=== PATIENT | female | born 1975 | race Caucasian/White ===

== ENCOUNTER 2017-02-01 07:45 | Day surgery (SDC) | payer BC ==
[~2017-02-01 07:45] MED LIST: Lactated Ringers 1,000 ML IV SCH; Lidocaine 2% 5 ML SDV ONE; Midazolam 1 MG/ML 2 ML SDV ONE; Ondansetron 4 MG/2 ML SDV ONE; Propofol 200 MG/20 ML SDV ONE; fentaNYL 250 MCG/5 ML SDV ONE
[2017-02-01] MEDS ORDERED: Methylergonovine 0.2 MG/1 ML Amp ONE (07:49)
[2017-02-01] MEDS ORDERED: fentaNYL 100 MCG/2 ML SDV IVPUSH PRN (08:33)
--- NOTE | 2017-02-01 08:54 | PCM.PREANE ---
Preanesthetic Assessment - Anesthesia/Transfusion/Family Hx Anesthesia History: Prior Anesthesia Without Reaction Other Type of Anesthesia Reaction Comment: "oxygen saturation kept dropping after my gastric bypass" Family History of Anesthesia Reaction: No Transfusion History: No Prior Transfusion(s) - Review of Systems General: No Symptoms Pulmonary: No Symptoms Cardiovascular: No Symptoms Gastrointestinal: No symptoms Neurological: No Symptoms Other: Reports: None - Physical Assessment NPO Status Date: 01/31/17 O2 Sat by Pulse Oximetry: 100 Respiratory Rate: 16 Vital Signs: Last Vital Signs Temp 36.3 C 02/01/17 07:49 Pulse 56 L 02/01/17 07:49 Resp 16 02/01/17 07:49 BP 133/68 02/01/17 07:49 Pulse Ox 100 02/01/17 07:49 Height: 1.68 m Weight: 123.377 kg ASA Class: 2 Mental Status: Alert & Oriented x3 Airway Class: Mallampati = 2 Dentition: Reports: Normal Dentition Lungs: Clear to auscultation, Normal respiratory effort Cardiovascular: Regular Rate, Regular Rhythm - Lab Values: Laboratory Last Values WBC 8.67 K/uL (4.0-11.0) 02/01/17 08:11 RBC 4.69 M/uL (4.30-5.90) 02/01/17 08:11 Hgb 13.3 g/dL (12.0-16.0) 02/01/17 08:11 Hct 41.1 % (36.0-46.0) 02/01/17 08:11 MCV 87.6 fL (80.0-98.0) 02/01/17 08:11 MCH 28.4 pg (27.0-32.0) 02/01/17 08:11 MCHC 32.4 g/dL (31.0-37.0) 02/01/17 08:11 RDW Std Deviation 46.5 fl (28.0-62.0) 02/01/17 08:11 RDW Coeff of Feliciano 15 % (11.0-15.0) 02/01/17 08:11 Plt Count 168 K/uL (150-400) 02/01/17 08:11 MPV 10.00 fL (7.40-12.00) 02/01/17 08:11 Nucleated RBC % 0.0 /100WBC 02/01/17 08:11 Nucleated RBCs # 0 K/uL 02/01/17 08:11 - Allergies Allergies/Adverse Reactions: Allergies Allergy/AdvReac Type Severity Reaction Status Date / Time No Known Allergies Allergy Verified 06/20/14 20:12 - Anesthesia Plan Pre-Op Medication Ordered: None - Acknowledgements Anesthesia Type Planned: General Anesthesia Pt an Appropriate Candidate for the Planned Anesthesia: Yes Alternatives and Risks of Anesthesia Discussed w Pt/Guardian: Yes Pt/Guardian Understands and Agrees with Anesthesia Plan: Yes Additional Comments: PMH: morbid obesity BMI=44, GERD, PCOS, No active asthma/RAD, Plan GA/LMA PreAnesthesia Questionnaire HEENT History: Reports: Other (See Below) Other HEENT History: wears contacts/glasses Respiratory History: Reports: Asthma, Other (See Below) Other Respiratory History: seasonal asthma Gastrointestinal History: Reports: Other (See Below) Other Gastrointestinal History: takes pantoprazole due to gastric bypass Genitourinary History: Reports: None 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: Polycystic Ovaries Endocrine/Metabolic History: Reports: Obesity/BMI 30+ Dermatologic History: Reports: Other (See Below) Other Dermatologic History: acne - Past Surgical History Head Surgeries/Procedures: Reports: None GI Surgical History: Reports: Bariatric Procedure Female Surgical History: Reports: D&C Other Female Surgeries/Procedures: previous hysteroscopy and D&C - SUBSTANCE USE Smoking Status *Q: Never Smoker Second Hand Smoke Exposure: No Recreational Drug Use History: No - HOME MEDS Home Medications: Home Meds Albuterol Sulfate [Proair Respiclick] 2 puff INH ASDIRECTED PRN 01/27/17 [ History] Calcium Carbonate [Calcium] 250 mg PO BID 01/27/17 [History] Cetirizine HCl [Zyrtec] 10 mg PO DAILY 01/27/17 [History] Clobetasol [Clobetasol 0.05%] 1 applic TOP BID PRN 01/27/17 [History] Cyanocobalamin/FA/Pyridoxine [Folbee] 1 tab PO DAILY 01/27/17 [History] Levonorgestrel [Mirena] 1 device VAG ASDIRECTED 01/27/17 [History] Multivitamin [Flintstones] 1 tab CHEW DAILY 01/27/17 [History] RX: Biotin 1 tab PO DAILY 01/27/17 [History] RX: Fluconazole [Diflucan] 150 mg PO DAILY PRN 01/27/17 [History] RX: Fluticasone Propionate, Micro [Fluticasone Propionate Micro] 1 puff INH BID PRN 01/27/17 [History] RX: Pantoprazole Sodium 40 mg PO DAILY 01/27/17 [History] Thiamine Mononitrate [Vitamin B-1] 100 mg PO DAILY 01/27/17 [History] - CURRENT (IN HOUSE) MEDS Current Meds: Current Medications Fentanyl (Sublimaze) 50 mcg IVPUSH Q5M PRN PRN Reason: Pain (severe 7-10) Stop: 02/02/17 08:33 Lactated Ringer's (Ringers, Lactated) 1,000 mls @ 125 mls/hr IV ASDIRECTED [facility] Last Admin: 02/01/17 08:18 Dose: 125 mls/hr Discontinued Medications Fentanyl (Sublimaze) Confirm Administered Dose 250 mcg .ROUTE .STK-MED ONE Stop: 02/01/17 07:19 Lidocaine (Xylocaine-Mpf 2%) Confirm Administered Dose 5 ml .ROUTE .STK-MED ONE Stop: 02/01/17 07:18 Methylergonovine Maleate (Methergine) Confirm Administered Dose 0.2 mg .ROUTE .STK-MED ONE Stop: 02/01/17 07:50 Midazolam HCl (Versed 1 Mg/Ml) Confirm Administered Dose 2 mg .ROUTE .STK-MED ONE Stop: 02/01/17 07:19 Ondansetron HCl (Zofran) Confirm Administered Dose 4 mg .ROUTE .STK-MED ONE Stop: 02/01/17 07:18 Propofol (Diprivan 20 Ml) Confirm Administered Dose 200 mg .ROUTE .STK-MED ONE Stop: 02/01/17 07:19
[2017-02-01] MEDS ORDERED: ePHEDrine 50 MG/ML SDV ONE (09:53)
--- NOTE | 2017-02-01 10:20 | PCM.OPNOTE ---
- General Post-Op/Procedure Note Date of Surgery/Procedure: 02/01/17 Operative Procedure(s): hysteroscopy, directed biopsies, fractional dilatation and curettage, with IUD removal and reinsertion Findings: uterus anteverted, sounds to 7 cm, the endometrium is somewhat irregular polypoid areas near the left uterine cornu and the right lower uterine segment. Pre Op Diagnosis: menometorrhagia. Post-Op Diagnosis: Same Anesthesia Technique: General LMA Primary Surgeon: Shobha Stern Anesthesia Provider: Fabrizio Lepe Pathology: directed endometrial biopsy, endometrial curettings, endocervical curettings, IUD EBL in mLs: 10 Drain/Tube Comments:: hysteroscopic deficit 300 ml Complications: None Condition: Good
--- NOTE | 2017-02-01 10:32 | PCM.SN ---
- Free Text/Narrative Note: IUD lot [id number] Exp 01/2019
[2017-02-01] MEDS ORDERED: Ketorolac 30 MG/ML SDV IVPUSH ONE (10:39)
--- NOTE | 2017-02-01 10:54 | PCM.POSTAN ---
POST ANESTHESIA ASSESSMENT - MENTAL STATUS Mental Status: alert, oriented - RESPIRATORY Respiratory Status: respiratory rate WNL, airway patent - CARDIOVASCULAR CV Status: pulse rate WNL, blood pressure stable - GASTROINTESTINAL GI Status: no symptoms - POST OP HYDRATION Hydration Status: adequate & stable
--- NOTE | 2017-02-01 11:42 | PCM48HPAN ---
Post Anesthesia Note - EVALUATION WITHIN 48HRS OF ANESTHETIC Vital Signs in Normal Range: Yes Patient Participated in Evaluation: Yes Respiratory Function Stable: Yes Airway Patent: Yes Cardiovascular Function Stable: Yes Hydration Status Stable: Yes Pain Control Satisfactory: Yes Nausea and Vomiting Control Satisfactory: Yes Mental Status Recovered: Yes
[2017-02-01 11:51] VITALS: BP 106/61
--- NOTE | 2017-02-01 14:34 | OR ---
SURGEON: Shobha Stern M.D. DATE OF PROCEDURE: 02/01/2017 PREOPERATIVE DIAGNOSIS: Menometrorrhagia with intrauterine device treating the menometrorrhagia. POSTOPERATIVE DIAGNOSIS: Menometrorrhagia with intrauterine device treating the menometrorrhagia. PROCEDURES: Hysteroscopic directed biopsy with fractional D and C removal and replacement of Mirena IUD. ANESTHESIA: General LMA. ESTIMATED BLOOD LOSS: Less than 10 mL. Hysteroscopic deficit was 300 mL with some unaccounted in tubing and floor. IV FLUIDS: 1000 mL crystalloid. COMPLICATION: None known. DISPOSITION: Stable to recovery. BRIEF HISTORY: This is a 41-year-old female with a history of menometrorrhagia. She had a Mirena IUD placed 5 years ago and as the Mirena IUD has begun to wear off, she has begun to bleed again. She denies any complications with the IUD. She would desire another IUD. However, due to her irregular bleeding, we will proceed with hysteroscopy, D and C at the time of removal and reinsertion of the IUD with risks discussed including bleeding, infection, uterine perforation with injury to surrounding organs. Risk of fluid overload, risk of thromboembolism, and anesthesia risks of the Mirena IUD. Additional risks were discussed including expulsion, perforation, or embedding. Understanding all these risks, she does desire to proceed. DESCRIPTION OF PROCEDURE: With the patient in dorsal lithotomy position, under adequate general LMA analgesia, the perineum and vagina were prepped with Betadine and draped in the usual fashion for vaginal surgery. The bladder had been drained with a red Adams catheter. SCDs were in place and an appropriate time-out was held. Bimanual examination revealed an anteverted 6 week size uterus. The string was grasped and removed. The IUD was sent to Pathology. Speculum was placed into the vagina. The anterior lip of the cervix was grasped with an Allis clamp. The cervix easily accepted a 6 mm Hegar dilator. The 6 mm hysteroscope was placed into the uterine cavity. There was good visualization of the uterine cavity. Bilateral tubal ostia were visualized. The uterine fundus appeared normal. The left tubal ostia had some irregular tissue that was removed near it. The right lower uterine segment had a polypoid structure that was also removed. This being completed, the hysteroscope was removed from the uterine cavity. There was a deficit reading of 1800, however there was no fluid that had been collected into the return container. This was instead collected into a routine suction container and with subtraction, the estimated deficit was 300 mL. This sharp curettage of the endometrium was then performed. A moderate-to- large amount of tissue was obtained. Sharp curettage of the endocervix was performed and this tissue was collected with the Cytobrush. The anterior lip of the cervix was then grasped. The Mirena IUD was retracted into the sheath placed to the uterine fundus. After the setting was placed at 7 cm further stopped after the tip of the IUD had been released, the IUD was completely released the strings which were trimmed to 3 cm. The IUD Lot number is recorded in the chart. There were no known complications. The patient was transferred to recovery in good condition. AYANNA EPPERSON /[id number]
== END 2017-02-01 11:58 | disposition home or self-care (01) ==
LOC: MW.SDS 07:45
PROVIDERS: ATTEND Obstetrics & Gynecology
PROC: 0UDB8ZX Extraction of Endometrium, Via Natural or Artificial Opening Endoscopic, Diagnostic (ICD-10-PCS; principal; 2017-02-01)
PROC: 0UH97HZ Insertion of Contraceptive Device into Uterus, Via Natural or Artificial Opening (ICD-10-PCS; 2017-02-01)
DX: N92.1 Excessive and frequent menstruation with irregular cycle (principal); N71.0 Acute inflammatory disease of uterus; Z30.433 Encounter for removal and reinsertion of intrauterine contraceptive device
CPT/HCPCS: 58300; 58558; 84703; 85027; J1885; J2250; J2405; J3010; J7120; 00952; 88300; 88305; J2210; J2704

== ENCOUNTER 2017-12-28 18:04 | Inpatient (IN) | payer BC ==
[2017-12-28] MEDS: Sodium Chloride 0.9% 1,000 ML IV SCH ×3 (18:58→21:10)
[2017-12-28] MEDS ORDERED: Ondansetron 4 MG/2 ML SDV IVPUSH PRN (19:11)
[2017-12-28] MEDS ORDERED: Sodium Chloride 0.9% 1,000 ML IV SCH (19:15)
--- NOTE | 2017-12-28 19:22 | PCM.HP ---
H&P History of Present Illness - General Date of Service: 12/28/17 Admit Problem/Dx: Admission Diagnosis/Problem Admission Diagnosis/Problem Pancreatitis due to biliary obstruction - History of Present Illness Initial Comments - Free Text/Narative: 42 yo female with pmh of gastric bypass in 2017 who presents to [facility] with one day complaint of right upper quadrant pain, nausea and vomiting. Patient reports have three spells like this one this year. The pain and nausea usually spontaneously stops after 30 hours. She was sent home from the clinic today with sukhwinder. She was called back for direct admission due to abnormal labs of total bilirubin of 3.9, AST of 412, ALT of 696, Alk phos of 181, Lipase of 17,784. Patient reports her pain and nausea has improved from earlier today. - Related Data Allergies/Adverse Reactions: Allergies Allergy/AdvReac Type Severity Reaction Status Date / Time No Known Allergies Allergy Verified 06/20/14 20:12 Home Medications: Home Meds Albuterol Sulfate [Proair Respiclick] 2 puff INH ASDIRECTED PRN 01/27/17 [ History] Cetirizine HCl [Zyrtec] 10 mg PO DAILY PRN 01/27/17 [History] Cyanocobalamin/FA/Pyridoxine [Folbee] 1 tab PO DAILY 01/27/17 [History] Fluticasone Propionate, Micro [Fluticasone Propionate Micro] 1 puff INH BID PRN 01/27/17 [History] Levonorgestrel [Mirena] 1 device VAG ASDIRECTED 01/27/17 [History] Multivitamin [Flintstones] 1 tab CHEW DAILY 01/27/17 [History] Calcium Citrate/Vitamin D3 [Calcet Citrate Creamy Bites] 1 tab.chew PO DAILY [History] Cholecalciferol (Vitamin D3) [Vitamin D3] 5,000 unit PO DAILY 12/28/17 [History] Ondansetron [Ondansetron ODT] 1 tab SL TID PRN 12/28/17 [History] Past Medical History HEENT History: Reports: Sinusitis, Other (See Below) Other HEENT History: wears contacts/glasses Respiratory History: Reports: Bronchitis, Recurrent, Other (See Below) Other Respiratory History: seasonal allergies Gastrointestinal History: Reports: Other (See Below) Other Gastrointestinal History: takes pantoprazole due to gastric bypass October 2016 Genitourinary History: Reports: None 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: Polycystic Ovaries Musculoskeletal History: Reports: Back Pain, Chronic Neurological History: Reports: Vertigo Endocrine/Metabolic History: Reports: Obesity/BMI 30+ Dermatologic History: Reports: Other (See Below) Other Dermatologic History: acne - Infectious Disease History Infectious Disease History: Reports: Chicken Pox, Measles - Past Surgical History Head Surgeries/Procedures: Reports: None HEENT Surgical History: Reports: None Respiratory Surgical History: Reports: None GI Surgical History: Reports: Bariatric Procedure Female Surgical History: Reports: D&C Other Female Surgeries/Procedures: previous hysteroscopy and D&C Neurological Surgical History: Reports: None Social & Family History - Family History Family Medical History: Noncontributory HEENT: Reports: Glaucoma Cardiac: Reports: Hypertension Respiratory: Reports: Asthma Neurological: Reports: TIA Endocrine/Metabolic: Reports: Diabetes, type II Immunologic: Reports: None Oncologic: Reports: Lymphoma, Renal - Tobacco Use Smoking Status *Q: Never Smoker - Caffeine Use Caffeine Use: Reports: None - Recreational Drug Use Recreational Drug Use: No H&P Review of Systems - Review of Systems: Review Of Systems: ROS reveals no pertinent complaints other than HPI. Exam - Exam Exam: See Below - Vital Signs Vital Signs: Last Vital Signs Temp 37.2 C 12/28/17 18:19 Pulse 110 H 12/28/17 18:19 Resp 16 12/28/17 18:19 BP 128/75 12/28/17 18:19 Pulse Ox 95 12/28/17 18:19 Weight: 105.506 kg - Exam General: Alert, Oriented HEENT: Mucosa Moist & [place]ck: Supple Cardiovascular: Regular Rate, Regular Rhythm GI/Abdominal Exam: Normal Bowel Sounds, Soft, Tender (mild tenderness to right upper quadrant). No: Guarding, Rigid, Rebound Extremities: No Pedal Edema Problem List Initiated/Reviewed/Updated: Yes Orders Last 24hrs: Active Orders 24 hr Category Date Time Status Patient Status [ADT] Routine ADT 12/28/17 19:11 Ordered Oxygen Therapy [RC] PRN Care 12/28/17 19:11 Ordered Up ad Hanna [RC] ASDIRECTED Care 12/28/17 19:11 Ordered VTE/DVT Education [RC] PER UNIT ROUTINE Care 12/28/17 19:11 Ordered Vital Signs [RC] Q4H Care 12/28/17 19:11 Ordered Nothing per Oral Now Diet [DIET] Diet 12/28/17 Breakfast Ordered Abdomen Comp [US] Routine Exams 12/28/17 18:32 Ordered CBC W/O DIFF,HEMOGRAM [HEME] AM Lab 12/29/17 05:11 Ordered COMPREHENSIVE METABOLIC PN,CMP [CHEM] AM Lab 12/29/17 05:11 Ordered LIPID PANEL [CHEM] AM Lab 12/29/17 05:11 Ordered HYDROmorphone [Dilaudid] Med 12/28/17 19:11 Ordered 0.5 mg IVPUSH Q2H PRN Heparin Sodium Med 12/28/17 19:15 Ordered 5,000 units SUBCUT Q8H Ondansetron [Zofran] Med 12/28/17 19:11 Ordered 4 mg IVPUSH Q4H PRN Sodium Chloride 0.9% [Normal Saline] 1,000 ml Med 12/28/17 19:15 Ordered IV .BOLUS Sodium Chloride 0.9% [Normal Saline] 1,000 ml Med 12/28/17 18:45 Ordered IV ASDIRECTED Sodium Chloride 0.9% [Normal Saline] 1,000 ml Med 12/28/17 19:15 Ordered IV ASDIRECTED Sequential Compression Device [OM.PC] Per Unit Routine Oth 12/28/17 19:11 Ordered Resuscitation Status Routine Resus Stat 12/28/17 19:11 Ordered Medication Orders Heparin Sodium (Porcine) (Heparin Sodium) 5,000 units SUBCUT Q8H MARISSA Hydromorphone HCl (Dilaudid) 0.5 mg IVPUSH Q2H PRN PRN Reason: Pain (severe 7-10) Sodium Chloride (Normal Saline) 1,000 mls @ 1,000 mls/hr IV ASDIRECTED MARISSA Last Admin: 12/28/17 18:58 Dose: 1,000 mls/hr Sodium Chloride (Normal Saline) 1,000 mls @ 999 mls/hr IV .BOLUS MARISSA Sodium Chloride (Normal Saline) 1,000 mls @ 250 mls/hr IV ASDIRECTED MARISSA Ondansetron HCl (Zofran) 4 mg IVPUSH Q4H PRN PRN Reason: Nausea Assessment/Plan Comment:: 42 yo female admitted for acute pancreatitis, I suspect patient has been passing gallstones. RUQ ultrasound reports gallstones. We will treat with IV fluid rescucitation,Cipro, Flagyl, Bowel rest and prn antiemetics and pain medications. Dr. Paulino has been consulted.
[2017-12-28] MEDS: HYDROmorphone 1 MG/ML Syringe IVPUSH PRN ×2 (20:31→22:40)
[2017-12-28] MEDS: Heparin Sodium 5,000 Units/ML Vial SUBCUT SCH (20:33)
[2017-12-28] MEDS: Ciprofloxacin in D5W 400 MG in Premix Bag 1 BAG IV SCH ×2 (22:40)
[2017-12-28] MEDS: metroNIDAZOLE/Normal Saline 500 MG in Premix Bag 1 BAG IV SCH (23:48)
[2017-12-29] MEDS: HYDROmorphone 1 MG/ML Syringe IVPUSH PRN ×2 (00:54→03:17)
[2017-12-29] MEDS: Heparin Sodium 5,000 Units/ML Vial SUBCUT SCH ×3 (03:13→18:37)
[2017-12-29] MEDS: Sodium Chloride 0.9% 1,000 ML IV SCH ×4 (03:13→18:34)
[2017-12-29] MEDS: metroNIDAZOLE/Normal Saline 500 MG in Premix Bag 1 BAG IV SCH ×4 (05:25→23:29)
[2017-12-29 06:17] LABS: CHLORIDE,CL 109 mmol/L (98-107); SODIUM,NA 140 mmol/L (136-145)
[2017-12-29] MEDS: Ciprofloxacin in D5W 400 MG in Premix Bag 1 BAG IV SCH ×4 (08:35→20:28)
[2017-12-29] MEDS: Acetaminophen 325 MG/10.15 ML ML PO PRN ×3 (10:10→20:28)
--- NOTE | 2017-12-29 11:06 | PCM.SN ---
- Free Text/Narrative Note: pt seen chart reveiwed; enzyme remained elevated; gb surgery when pain is gone and enzyme levelled to baseline, and gb cool down; usually is a wk; and pt had gastric bypass, ERCP would not be possible, would also do intraop choleangiogram to assess possible cbd stones; will discuss and arrange surg date w pt; pt should have low fat to nonfat diet till surgery;
--- NOTE | 2017-12-29 11:40 | PCM.SN ---
- Free Text/Narrative Note: Pt called her gastric bypass surgeon, apparantly she was told surgery possible next week; pt is currently almost pain free, and enzyme still elevated; a couple days of cooling down, surgery would be just right; encourage pt to secure next week surgery; we will be more than happy to take care of her postop if the need arise; pt can be discharged and on low/no fat diet till surgery; will sign off, recall if questions; thanks for the care and consult of this pleasant pt.
--- NOTE | 2017-12-29 11:52 | US ---
EXAM DATE: 12/28/17 PATIENT'S AGE: 42 Patient: SELENE ORO Facility: [place], [place] Site . Site : 1975 Study: US Abdomen [id number]/2017 8:22:17 PM Ordering Physician: Coretta Dumont Final Report: HISTORY: Pancreatitis. Elevated bilirubin. COMPARISON: None. FINDINGS: The liver appears normal, however not optimally viewed with shadowing present. Multiple gallstones. Gallbladder wall thickness of 2 mm. No evidence for pericholecystic fluid. Positive sonographic Conteh`s sign. No biliary dilation. The common duct is at 5 mm. The pancreas is not well seen. The right kidney measures 12 cm in length. No evidence for hydronephrosis. IMPRESSION: Gallstones and positive sonographic Conteh sign may represent acute cholecystitis. No evidence for choledocholithiasis. Surgical consultation recommended. Dictated by Inga Castro MD @ Dec 28 2017 8:34PM (Electronic Signature) Report Signed by Proxy. MARIA D
--- NOTE | 2017-12-29 14:57 | CONS ---
DATE OF CONSULTATION: DATE OF : 1975 PRIMARY CARE PHYSICIAN: None PCP REASON FOR CONSULTATION: A consult was called, and the patient was seen shortly after. Concerning question is gallstone pancreatitis. HISTORY OF PRESENT ILLNESS: The patient is a 42-year-old lady, morbidly obese and status post gastric bypass, BMI still 39, and seen in the emergency room with abdominal pain about 1-1/2 day. The patient remarked the pain is unbearable on a pain scale about 8 to 9 and had happened in the past four times in a row, almost once every year. The patient remarked in September, October, November, and December. The patient remarked the urine is also a little bit darker, tea-colored, and getting more aisha. At the same time, the patient denied jaundice and denied white stool and denied fever, chills, or diarrhea. PAST MEDICAL HISTORY: Significant for morbid obesity and resolving diabetes; and no DC, CVA, or hypertension. PAST SURGICAL HISTORY: Laparoscopic gastric bypass at [facility] and had a history of D and C and hysteroscopy. FAMILY HISTORY: Noncontributory. REVIEW OF SYSTEMS: Same as history of present illness on examination. ALLERGIES: Please refer to nursing for details. MEDICATIONS: Please refer to nursing for details. SOCIAL HISTORY: Never smoker. PHYSICAL EXAMINATION: GENERAL: A very pleasant lady in no acute distress and smiled to doctor. HEENT: Normocephalic and atraumatic. Sclerae are anicteric. NECK: Supple. HEART: Regular rate and rhythm. ABDOMEN: Soft, nondistended. No pulsating tenderness in the midline abdominal structure. Well-healed laparoscopic surgical scar. Nontender at all. No rebound tenderness. LABORATORY DATA: Upon consultation, white count is 8 and H and H are 12 and 38, platelet is 142. Sodium 140, potassium 4. Total bilirubin is 0.8, and AST and ALT are 160 and 447 which are down from upon admission. Alkaline phosphatase is 155. Amylase is 1700, and lipase is 8000; on admission, it was 17,000. Beta-hCG is negative. IMAGING: The patient had an ultrasound done. Formal report is not available. Preliminary report suggests, the patient's gallstone, wall not thickened. No cholecystic fluid and common bile duct is 5. IMPRESSION: Gallstone and pancreatitis, probably is gallstone pancreatitis, and the patient denies alcohol drinking any way. With amylase and lipase pattern, it does feel completely like a gallstone pancreatitis. If it does spike to 18,000 on the lipase, probably the patient will need surgery. Timing is sometimes a little bit tricky. The patient would benefit from laparoscopic cholecystectomy and with possible intraoperative cholangiogram as the patient has gastric bypass, so it is important to delineate x-ray although ultrasound shows no gallstone, no common bile duct stone. The patient would probably benefit to have gallbladder surgery probably 1 to 2 weeks or 3 weeks from today, and let the gallbladder go down a little bit with pain medications, and to early surgery. The patient would be at risk for pleural effusion. The patient's timing of surgery, we will address that with the patient, and because it is summer, traveling schedule, as well as the patient's overall planning. The patient probably would benefit to have surgery in 2 or 3 weeks from now, will have an intraoperative cholangiogram. We will discuss the plan with the patient. Thank you for the consult. We will follow the patient with you. DILIP EPPERSON /[id number]
--- NOTE | 2017-12-29 15:56 | CR ---
EXAMINATION: Sacrum and coccyx HISTORY: Pain COMPARISON: CT dated 06/20/2014 TECHNIQUE: AP and lateral views of the sacrum and coccyx FINDINGS: The SI joints are symmetric. Bone mineralization is normal. No fracture or acute osseous ab normality. Sacrum and coccyx appear intact IUD projects over the pelvis. IMPRESSION: Unremarkable sacrum and coccyx.
--- NOTE | 2017-12-29 22:25 | PCM.PN ---
- General Info Date of Service: 12/29/17 Admission Dx/Problem (Free Text): Admission Diagnosis/Problem Admission Diagnosis/Problem Pancreatitis due to biliary obstruction Feeling better, pain minimal , no nausea, lipase decreased to 7000, patient will be started on clear liquid diet . Will continue iv fluids. Seen by surgery recommended medical management right now until the lipase decreases and patient pain free. Patient scheduled appointment with her Surgeon in [facility] for as this is her 3rd episode of gallstone pancreatitis this year and she doesnt want to wait 2 more weeks until the surgeon here is available. Functional Status: Reports: Pain Controlled - Review of Systems HEENT: Reports: No Symptoms Pulmonary: Reports: No Symptoms Cardiovascular: Reports: No Symptoms Gastrointestinal: Reports: Abdominal Pain (mild) Genitourinary: Reports: No Symptoms Musculoskeletal: Reports: No Symptoms Skin: Reports: No Symptoms Neurological: Reports: No Symptoms Psychiatric: Reports: No Symptoms - Patient Data Vitals - Most Recent: Last Vital Signs Temp 98.2 F 12/29/17 20:00 Pulse 60 12/29/17 20:00 Resp 18 12/29/17 20:00 BP 108/52 L 12/29/17 20:00 Pulse Ox 99 12/29/17 20:00 Weight - Most Recent: 232 lb 9.6 oz I&O - Last 24 Hours: Intake & Output 12/29/17 12/29/17 12/29/17 06:59 14:59 22:59 Intake Total 3404 300 2922 Output Total 300 700 Balance 3104 300 2222 Lab Results Last 24 Hours: Laboratory Results - last 24 hr 12/29/17 12/29/17 12/29/17 Range/Units 05:40 05:40 05:40 WBC 8.15 (4.0-11.0) K/uL RBC 4.25 L (4.30-5.90) M/uL Hgb 12.5 (12.0-16.0) g/dL Hct 38.2 (36.0-46.0) % MCV 89.9 (80.0-98.0) fL MCH 29.4 (27.0-32.0) pg MCHC 32.7 (31.0-37.0) g/dL RDW Std Deviation 46.3 (28.0-62.0) fl RDW Coeff of Feliciano 14 (11.0-15.0) % Plt Count 142 L (150-400) K/uL MPV 9.40 (7.40-12.00) fL Nucleated RBC % 0.0 /100WBC Nucleated RBCs # 0 K/uL Sodium 140 (136-145) mmol/L Potassium 4.0 (3.5-5.1) mmol/L Chloride 109 H (98-107) mmol/L Carbon Dioxide 27.3 (21.0-32.0) mmol/L BUN 14 (7.0-18.0) mg/dL Creatinine 0.8 (0.6-1.0) mg/dL Est Cr Clr Drug Dosing 84.11 mL/min Estimated GFR (MDRD) > 60.0 ml/min Glucose 91 (74-106) mg/dL Calcium 8.2 L (8.5-10.1) mg/dL Total Bilirubin 0.8 (0.2-1.0) mg/dL AST 162 H (15-37) IU/L ALT 447 H (14-63) IU/L Alkaline Phosphatase 155 H (46-116) U/L Total Protein 5.8 L (6.4-8.2) g/dL Albumin 3.1 L (3.4-5.0) g/dL Globulin 2.7 (2.0-3.5) g/dL Albumin/Globulin Ratio 1.2 L (1.3-2.8) Triglycerides 105 (0-200) mg/dL Cholesterol 145 (50-200) mg/dL LDL Cholesterol, Calc 78 (60-180) mg/dL VLDL Cholesterol 21 (5-55) mg/dL HDL Cholesterol 46 (40-60) mg/dL Cholesterol/HDL Ratio 3.2 L (3.3-6.0) Lipase 7969 H (73-393) U/L Med Orders - Current: Current Medications Acetaminophen (Tylenol) 400 mg PO Q4H PRN PRN Reason: Headache Last Admin: 12/29/17 20:28 Dose: 400 mg Heparin Sodium (Porcine) (Heparin Sodium) 5,000 units SUBCUT Q8H [facility] Last Admin: 12/29/17 18:37 Dose: 5,000 units Hydromorphone HCl (Dilaudid) 0.5 mg IVPUSH Q2H PRN PRN Reason: Pain (severe 7-10) Last Admin: 12/29/17 03:17 Dose: 0.5 mg Sodium Chloride (Normal Saline) 1,000 mls @ 1,000 mls/hr IV ASDIRECTED [facility] Last Admin: 12/29/17 14:32 Dose: 1,000 mls/hr Sodium Chloride (Normal Saline) 1,000 mls @ 999 mls/hr IV .BOLUS [facility] Sodium Chloride (Normal Saline) 1,000 mls @ 250 mls/hr IV ASDIRECTED [facility] Last Admin: 12/29/17 18:34 Dose: 250 mls/hr Ciprofloxacin/Dextrose 400 mg/ (Premix) 200 mls @ 200 mls/hr IV Q12H [facility] Last Admin: 12/29/17 20:28 Dose: 200 mls/hr Metronidazole 500 mg/ Premix 100 mls @ 100 mls/hr IV QID [facility] Last Admin: 12/29/17 18:36 Dose: 100 mls/hr Ondansetron HCl (Zofran) 4 mg IVPUSH Q4H PRN PRN Reason: Nausea - Exam General: Alert, Oriented, Cooperative HEENT: Pupils Equal Neck: Supple, Trachea Midline, No JVD Lungs: Clear to Auscultation, Normal Respiratory Effort Cardiovascular: Regular Rate, Regular Rhythm, No Murmurs GI/Abdominal Exam: Normal Bowel Sounds, Soft, No Abnormal Bruit, Tender (RUQ tenderness , positive Conteh sign) Back Exam: Normal Inspection Extremities: Normal Inspection - Problem List & Annotations (1) Pancreatitis due to biliary obstruction SNOMED Code(s): 279342087 Code(s): K85.90 - ACUTE PANCREATITIS WITHOUT NECROSIS OR INFECTION, UNSP; K83.1 - OBSTRUCTION OF BILE DUCT Status: Acute Current Visit: Yes (2) Gallbladder calculus SNOMED Code(s): 973825821 Code(s): K80.20 - CALCULUS OF GALLBLADDER W/O CHOLECYSTITIS W/O OBSTRUCTION Status: Acute Current Visit: Yes (3) Cholecystitis with cholelithiasis SNOMED Code(s): 188497952, 751999481 Code(s): K80.10 - CALCULUS OF GALLBLADDER W CHRONIC CHOLECYST W/O OBSTRUCTION Status: Acute Current Visit: Yes (4) Obesity (BMI 35.0-39.9 without comorbidity) SNOMED Code(s): 047123524, 803032091 Code(s): E66.9 - OBESITY, UNSPECIFIED Status: Acute Current Visit: Yes - Problem List Review Problem List Initiated/Reviewed/Updated: Yes - My Orders Last 24 Hours: My Active Orders 12/29/17 Dinner Clear Liquid Diet [DIET] 12/30/17 05:11 CBC W/O DIFF,HEMOGRAM [HEME] AM 12/30/17 06:10 COMPREHENSIVE METABOLIC PN,CMP [CHEM] Routine 12/30/17 07:00 LIPASE [CHEM] Routine a/p Gallstone pancreatitis Gallstone cholecystitis Obesity s/p gastric bypass plan continue iv fluids , continue iv antibiotics , ciprofloxacin and metronidazole , iv ondasetron, start clear liquid diet , f/up LFTs , d/c planning surgery as outpatient next week
[2017-12-30] MEDS: Sodium Chloride 0.9% 1,000 ML IV SCH ×2 (01:37→06:19)
[2017-12-30] MEDS: Heparin Sodium 5,000 Units/ML Vial SUBCUT SCH ×2 (03:56→11:38)
[2017-12-30] MEDS: metroNIDAZOLE/Normal Saline 500 MG in Premix Bag 1 BAG IV SCH ×2 (05:13→11:32)
[2017-12-30 06:03] LABS: CHLORIDE,CL 109 mmol/L (98-107); SODIUM,NA 138 mmol/L (136-145)
[2017-12-30] MEDS: Ciprofloxacin in D5W 400 MG in Premix Bag 1 BAG IV SCH ×2 (08:22)
[2017-12-30 13:05] VITALS: BP 123/65
--- NOTE | 2017-12-30 15:43 | PCM.DCSUM1 ---
Discharge Summary - Discharge Data Discharge Disposition: Home, Self-Care 01 Condition: Good - Discharge Diagnosis/Problem(s) (1) Pancreatitis due to biliary obstruction SNOMED Code(s): 647633888 ICD Code: K85.90 - ACUTE PANCREATITIS WITHOUT NECROSIS OR INFECTION, UNSP; K83.1 - OBSTRUCTION OF BILE DUCT Status: Acute (2) Gallbladder calculus SNOMED Code(s): 768291421 ICD Code: K80.20 - CALCULUS OF GALLBLADDER W/O CHOLECYSTITIS W/O OBSTRUCTION Status: Acute Qualifiers: Cholecystitis presence: without cholecystitis Biliary obstruction: with biliary obstruction Qualified Code(s): K80.21 - Calculus of gallbladder without cholecystitis with obstruction (3) Obesity (BMI 35.0-39.9 without comorbidity) SNOMED Code(s): 199863434, 252169408 ICD Code: E66.9 - OBESITY, UNSPECIFIED Status: Acute - Patient Summary/Data Consults: Consultations 12/28/17 21:22 Consult to Physician [CONS] Routine - Patient Instructions Diet, Other: low fat diet Activity: As Tolerated Driving: May Drive Today Notify Provider of: Fever - Discharge Plan Prescriptions/Med Rec: Ondansetron HCl [Ondansetron] 4 mg PO Q4H PRN #20 tablet PRN Reason: Nausea Home Medications: Home Meds Albuterol Sulfate [Proair Respiclick] 2 puff INH ASDIRECTED PRN 01/27/17 [ History] Cetirizine HCl [Zyrtec] 10 mg PO DAILY PRN 01/27/17 [History] Cyanocobalamin/FA/Pyridoxine [Folbee] 1 tab PO DAILY 01/27/17 [History] Fluticasone Propionate, Micro [Fluticasone Propionate Micro] 1 puff INH BID PRN 01/27/17 [History] Levonorgestrel [Mirena] 1 device VAG ASDIRECTED 01/27/17 [History] Multivitamin [Flintstones] 1 tab CHEW DAILY 01/27/17 [History] Calcium Citrate/Vitamin D3 [Calcet Citrate Creamy Bites] 1 tab.chew PO DAILY [History] Cholecalciferol (Vitamin D3) [Vitamin D3] 5,000 unit PO DAILY 12/28/17 [History] Ondansetron [Ondansetron ODT] 1 tab SL TID PRN 12/28/17 [History] Ondansetron HCl [Ondansetron] 4 mg PO Q4H PRN #20 tablet 12/30/17 [Rx] Patient Handouts: Ondansetron tablets, Acute Pancreatitis, [id number] Referrals: [facility] [Outside] Jaswinder Colon MD [Ordering Only Provider] - 01/05/18 - Patient Data Vitals - Most Recent: Last Vital Signs Temp 99.8 F 12/30/17 12:00 Pulse 74 12/30/17 12:00 Resp 16 12/30/17 12:00 BP 123/65 12/30/17 12:00 Pulse Ox 99 12/30/17 12:00 Weight - Most Recent: 232 lb 9.6 oz I&O - Last 24 hours: Intake & Output 12/30/17 12/30/17 12/30/17 06:59 14:59 22:59 Intake Total 2620 Output Total 1700 Balance 920 Lab Results - Last 24 hrs: Laboratory Results - last 24 hr 12/30/17 12/30/17 12/30/17 Range/Units 05:13 05:13 05:13 WBC 6.17 (4.0-11.0) K/uL RBC 3.74 L (4.30-5.90) M/uL Hgb 11.3 L (12.0-16.0) g/dL Hct 33.6 L (36.0-46.0) % MCV 89.8 (80.0-98.0) fL MCH 30.2 (27.0-32.0) pg MCHC 33.6 (31.0-37.0) g/dL RDW Std Deviation 45.7 (28.0-62.0) fl RDW Coeff of Feliciano 14 (11.0-15.0) % Plt Count 115 L (150-400) K/uL MPV 9.50 (7.40-12.00) fL Nucleated RBC % 0.0 /100WBC Nucleated RBCs # 0 K/uL Sodium 138 (136-145) mmol/L Potassium 4.0 (3.5-5.1) mmol/L Chloride 109 H (98-107) mmol/L Carbon Dioxide 22.8 (21.0-32.0) mmol/L BUN 8 (7.0-18.0) mg/dL Creatinine 0.7 (0.6-1.0) mg/dL Est Cr Clr Drug Dosing 96.13 mL/min Estimated GFR (MDRD) > 60.0 ml/min Glucose 117 H (74-106) mg/dL Calcium 8.0 L (8.5-10.1) mg/dL Total Bilirubin 0.6 (0.2-1.0) mg/dL AST 54 H (15-37) IU/L ALT 263 H (14-63) IU/L Alkaline Phosphatase 115 (46-116) U/L Total Protein 5.2 L (6.4-8.2) g/dL Albumin 2.6 L (3.4-5.0) g/dL Globulin 2.6 (2.0-3.5) g/dL Albumin/Globulin Ratio 1.0 L (1.3-2.8) Lipase 688 H (73-393) U/L Med Orders - Current: Current Medications Discontinued Medications Acetaminophen (Tylenol) 400 mg PO Q4H PRN PRN Reason: Headache Last Admin: 12/29/17 20:28 Dose: 400 mg Heparin Sodium (Porcine) (Heparin Sodium) 5,000 units SUBCUT Q8H [facility] Last Admin: 12/30/17 11:38 Dose: 5,000 units Hydromorphone HCl (Dilaudid) 0.5 mg IVPUSH Q2H PRN PRN Reason: Pain (severe 7-10) Last Admin: 12/29/17 03:17 Dose: 0.5 mg Sodium Chloride (Normal Saline) 1,000 mls @ 1,000 mls/hr IV ASDIRECTED [facility] Last Admin: 12/29/17 14:32 Dose: 1,000 mls/hr Sodium Chloride (Normal Saline) 1,000 mls @ 999 mls/hr IV .BOLUS [facility] Sodium Chloride (Normal Saline) 1,000 mls @ 250 mls/hr IV ASDIRECTED [facility] Last Admin: 12/30/17 06:19 Dose: 250 mls/hr Ciprofloxacin/Dextrose 400 mg/ (Premix) 200 mls @ 200 mls/hr IV Q12H [facility] Last Admin: 12/30/17 08:22 Dose: 200 mls/hr Metronidazole 500 mg/ Premix 100 mls @ 100 mls/hr IV QID [facility] Last Admin: 12/30/17 11:32 Dose: 100 mls/hr Ondansetron HCl (Zofran) 4 mg IVPUSH Q4H PRN PRN Reason: Nausea Last Admin: 12/30/17 00:25 Dose: 4 mg
== END 2017-12-30 13:40 | disposition home or self-care (01) | DRG 282 ==
LOC: MW.MS 18:04
PROVIDERS: ADMIT Internal Medicine; ATTEND Internal Medicine
DX: K85.90 Acute pancreatitis without necrosis or infection, unspecified (principal); K80.01 Calculus of gallbladder with acute cholecystitis with obstruction; E66.9 Obesity, unspecified; Z68.38 Body mass index [BMI] 38.0-38.9, adult; Z98.84 Bariatric surgery status; Z79.899 Other long term (current) drug therapy
CPT/HCPCS: 36415; 71046; 71046-26; 72220; 72220-26; 74019; 74019-26; 76705; 76705-26; 80053; 80061; 82150; 83690; 85025; 85027; 85652; A9270-GY; J0744; J1170; J1644; J2405; J7040

== ENCOUNTER 2025-07-09 08:52 | Day surgery (SDC) | payer BC ==
[~2025-07-09 08:52] MED LIST changes: +Albuterol 0.083% 2.5 MG/3 ML Neb Soln NEB PRN; +Dexamethasone 4 MG/ML 5 ML MDV ONE; -Lactated Ringers 1,000 ML IV SCH; -Lidocaine 2% 5 ML SDV ONE; -Midazolam 1 MG/ML 2 ML SDV ONE; +Naloxone 0.4 MG/ML SDV IVPUSH PRN; +Ondansetron 4 MG/2 ML SDV IVPUSH PRN; -Propofol 200 MG/20 ML SDV ONE; +Scopalamine 1mg/3day Transdermal Patch ONE; +fentaNYL 100 MCG/2 ML SDV ONE; -fentaNYL 250 MCG/5 ML SDV ONE
[2025-07-09] MEDS: Lactated Ringers 1,000 ML IV SCH (09:20)
[2025-07-09] MEDS ORDERED: Ketorolac 30 MG/ML SDV ONE (09:30)
[2025-07-09] MEDS ORDERED: Ondansetron 4 MG/2 ML SDV ONE (09:30)
[2025-07-09] MEDS ORDERED: propofoL 500 MG/50 ML 50 ML ONE (10:00)
[2025-07-09] MEDS: fentaNYL 50 MCG/ML SDV IVPUSH PRN (10:34)
[2025-07-09 12:55] VITALS: BP 124/65; PULSE 86
== END 2025-07-09 12:00 | disposition home or self-care (01) ==
LOC: MW.SDS 08:52
PROVIDERS: ATTEND Obstetrics & Gynecology
DX: N85.8 Other specified noninflammatory disorders of uterus (principal); N92.1 Excessive and frequent menstruation with irregular cycle; E66.9 Obesity, unspecified; Z88.5 Allergy status to narcotic agent; Z68.41 Body mass index [BMI] 40.0-44.9, adult; Z91.09 Other allergy status, other than to drugs and biological substances; Z79.899 Other long term (current) drug therapy
CPT/HCPCS: 57505; 58300; 58558; 81025; A9270; J1100; J1171; J1308; J1885; J2003; J2405; J2704; J3010; J7120; J7999; 00952; J0690; J2371; J2765; J3490